=== PATIENT | female | born 1945 | race Two or more races ===

== ENCOUNTER 2017-06-25 11:32 | Outpatient (CLI) | payer MEDICARE ==
[2017-06-25 12:22] LABS: CALCIUM, SERUM 9.4 mg/dL (8.5-10.1); CARBON DIOXIDE 29 mmol/L (21-32); CHLORIDE 106 mmol/L (98-107); CREATININE 0.8 mg/dL (0.6-1.3); GLUCOSE 106 mg/dL (74-106); POTASSIUM 3.6 mmol/L (3.5-5.1); SODIUM SERUM 143 mmol/L (136-145); UREA NITROGEN, BLOOD 20 mg/dL (7-18)
== END 2017-06-25 23:59 | disposition home or self-care (01) ==
LOC: LAB 11:32
PROVIDERS: ATTEND Internal Medicine Interventional Cardiology
DX: R07.9 Chest pain, unspecified (principal); R06.02 Shortness of breath; I10 Essential (primary) hypertension
CPT/HCPCS: 36415; 80048-TC

== ENCOUNTER → 2017-06-28 | Outpatient (CLI) | payer MEDICARE, OTHER ==
[~2017-06-28] MED LIST: IOHEXOL-350 100 ML VIAL IV ONE; METOPROLOL TARTRATE INJ 5 MG/5 ML AMPUL ONE; diphenhydrAMINE HCL 50 MG/ML VIAL ONE; methylPREDNISolone SOD SUCC 125 MG/2ML VIAL ONE
== END | disposition home or self-care (01) ==
LOC: CT 06-26 10:58
PROVIDERS: ATTEND Internal Medicine Interventional Cardiology
DX: M47.894 Other spondylosis, thoracic region (principal); I10 Essential (primary) hypertension
CPT/HCPCS: 75574; J1200; J2930 ×2; J3490 ×3; Q9967; Z7610